=== PATIENT | female | born 1970 | race African-American/Black ===

== ENCOUNTER → 2018-07-30 | Outpatient (CLI) | payer OTHER ==
[~2018-07-30] MED LIST: CALCIUM1 CAP PO; MICARDIS20 MG PO; NEXIUM 20MG CAP20 MG PO
== END ==
LOC: COL.RAD 07:11
DX: K31.84 Gastroparesis (principal)
CPT/HCPCS: A9541

== ENCOUNTER → 2018-08-18 | Outpatient (CLI) | payer OTHER | LOC: COL.RAD 08:08 | DX: K76.9 Liver disease, unspecified (principal) ==

== ENCOUNTER → 2019-02-24 | Outpatient (CLI) | payer OTHER | LOC: COL.RAD 09:35 | DX: K76.89 Other specified diseases of liver (principal); R93.2 Abnormal findings on diagnostic imaging of liver and biliary tract | CPT/HCPCS: A9585 ==